=== PATIENT | male | born 1940 | race Caucasian/White ===

== ENCOUNTER 2017-02-27 05:42 | Day surgery (SDC) | payer MEDICARE ==
--- OUTSIDE RECORDS SUMMARY | 2017-02-27 05:46 | XMS REPORT | Continuity of Care Document ---
:1940 Author Organization [facility] ([facility]) Address [address] [place] [address] Phone [phone] Care Team Providers Name Role Phone Unavailable Primary Care Provider Unavailable Source Comments This disclosure is being made pursuant to the Care Everywhere program, applicable federal and state laws, and may not contain all informaitonavailable regarding this patient.[facility] ([facility]) Active Allergies and Adverse Reactions Not on File Current Medications Not on file Active Problems Not on file Social History Tobacco Use Types Packs/Day Years Used Date Never Assessed Plan of Care Health Maintenance Due Date Last Done Comments Hepatitis B Vaccine (1 of 3 - Primary Series) 1940 Tdap Vaccine 1952 Lipid Disorder Screening 1959 Td Vaccine 1959 Colonoscopy 1991 Prostate Cancer Screening 1991 Zoster Vaccine 2001 Pneumococcal Vaccine (1 of 2 - PCV13) 2006 Influenza Vaccine: Seasonal (#1) 07/01/2016 Results from Last 3 Months Not on file
[2017-02-27] MEDS ORDERED: ceFAZolin SODIUM 1 GM in DEXTROSE 5 % IN WATER 100 ML IV PRN ×2 (06:00)
[2017-02-27] MEDS ORDERED: ONDANSETRON HCL/PF 2 MG/ML VIAL IV PRN (06:00)
[2017-02-27] MEDS ORDERED: ACETAMINOPHEN 325 MG TABLET PO PRN (06:00)
[2017-02-27] MEDS ORDERED: RINGERS SOLUTION,LACTATED 1,000 ML IV PRN (06:00)
[2017-02-27] MEDS ORDERED: oxyCODONE HCL/ACETAMINOPHEN 1 TAB TABLET PO PRN ×2 (06:00)
[2017-02-27] MEDS ORDERED: MORPHINE SULFATE 4 MG/ML SYRG IV PRN ×2 (06:00)
[2017-02-27] MEDS ORDERED: OXYMETAZOLINE HCL 150 SPRAY BTL NS PRN (06:00)
[2017-02-27] MEDS ORDERED: MORPHINE SULFATE 10 MG/ML SYRG IV PRN ×2 (06:00)
[2017-02-27] MEDS ORDERED: DEXAMETHASONE SOD PHOSPHATE 10 MG/ML VIAL IV PRN (06:00)
[2017-02-27] MEDS ORDERED: RINGERS SOLUTION,LACTATED 1,000 ML IV ONE (06:55)
[2017-02-27] MEDS ORDERED: OXYMETAZOLINE HCL 150 SPRAY BTL NS ONE (07:15)
[2017-02-27] MEDS ORDERED: MUPIROCIN 22 APPL TUBE TP ONE (07:34)
[2017-02-27] MEDS ORDERED: LIDOCAINE HCL/EPINEPHRINE 30 ML VIAL IJ ONE ×2 (07:34)
[2017-02-27] MEDS ORDERED: COCAINE HCL 4 APPL BTL TP ONE (07:34)
[2017-02-27 09:32] VITALS: BP 171/82
== END 2017-02-27 05:43 | disposition home or self-care (01) ==
LOC: AMB 05:42
PROVIDERS: ATTEND Allergy & Immunology
PROC: 09BL0ZZ Excision of Nasal Turbinate, Open Approach (ICD-10-PCS; 2017-02-27)
PROC: 09SM0ZZ Reposition Nasal Septum, Open Approach (ICD-10-PCS; principal; 2017-02-27 07:00)
DX: J34.2 Deviated nasal septum (principal); J34.3 Hypertrophy of nasal turbinates; E11.9 Type 2 diabetes mellitus without complications; I10 Essential (primary) hypertension; E78.5 Hyperlipidemia, unspecified; I25.10 Atherosclerotic heart disease of native coronary artery without angina pectoris; Z87.891 Personal history of nicotine dependence; Z68.29 Body mass index [BMI] 29.0-29.9, adult

== ENCOUNTER 2017-08-25 03:38 | Emergency (ER) | payer MEDICARE ==
--- NOTE | 2017-08-25 04:01 | ERNOTE ---
Medical Problem HPI - General Chief Complaint: General Assessment Time Seen by Provider: 08/25/17 04:00 Source: patient, police Exam Limitations: dementia - possible - Immun/Allergies/Home Medications Immunizations: IMMUNIZATION HX Immunizations Up to Date Yes History of Influenza Vaccine Yes Hx Pneumococcal Vaccination Yes Allergies/Adverse Reactions: Allergies No Known Allergies Allergy (Verified 08/25/17 04:06) Home Medications: HOME MEDICATIONS Aspirin 325 mg PO DAILY 08/25/17 [Last Taken Unknown] Atorvastatin Calcium 40 mg PO DAILY 08/25/17 [Last Taken Unknown] Insulin Glargine,Hum.rec.anlog [Lantus] 22 units SC HS 08/25/17 [Last Taken Unknown] Lisinopril 20 mg PO DAILY 08/25/17 [Last Taken Unknown] Mometasone Furoate [Nasonex] 2 spray NS DAILY 08/25/17 [Last Taken Unknown] metFORMIN HCL [Glucophage] 1,000 mg PO BIDWM 08/25/17 [Last Taken Unknown] - History of Present History Narrative: Patient is convinced that one of his neighbors is trying to kill him. He has been threatening this neighbor. Now the neighbor wants to press charges against him and called the police. The police felt that the patient didn't understand the problem so brought the patient here to be checked out. Patient is alert and oriented to date, time and place. Timing: intermittent Severity: moderate Modifying Factors - (Improves): Present: other - nothing Modifying Factors - (Worsens): Present: other - nothing Review of Systems - Review of Systems Constitutional: Absent: recent illness, fever, chills, weakness EYE: Absent: eye pain ENT: Absent: ear pain, sore throat Respiratory: Absent: shortness of breath, cough Cardiology: Absent: chest pain Gastrointestinal/Abdominal: Absent: nausea, vomiting, diarrhea, abdominal pain Genitourinary: Absent: frequency, pain, dysuria Musculoskeletal: Absent: back pain, muscle pain, muscle stiffness, neck pain Skin: Present: no symptoms reported Neurological: Absent: anxiety, depressed Endocrine: Present: no symptoms reported Hematologic/Lymphatic: Present: no symptoms reported Psych: Present: no symptoms reported - Patient's Past Medical History Patient History - Medical: Diabetes Type 2 Insulin Dependent, Other Patient History - Cardiac/Respiratory: Hypertension, Hyperlipidemia Patient History - Cancer: No Hx of Cancer Patient History - Surgical Procedures: Hernia Repair, Orthopedic Patient History - Other: None - Family History Mother Family History - Medical: , Diabetes Type 2 Family History - Cardiac/Respiratory: No pertinent hx Family History - Cancer: No pertinent family hx - Social History Living Situations: home Abuse History: No History of abuse Psych History: No pertinent hx Smoking Status: Former smoker Alcohol Use: none Drug Use: none - Immunizations Immunizations Up to Date: Yes Hx Pneumococcal Vaccination: Yes History of Influenza Vaccine: Yes Physical Exam - Physical Exam General Appearance: Present: wd/wn, alert, no apparent distress Head Exam: Present: normal inspection, no evidence of injury Eye Exam: Normal inspection: bilateral, PERRL: bilateral, EOMI: bilateral Ears, Nose, Throat: Present: normal ENT inspection Neck: Present: normal inspection, nontender Respiratory: Present: no respiratory distress, normal breath sounds, no accessory muscle use Cardiovascular/Chest: Present: regular rate, rhythm, no murmur, normal peripheral pulses Gastrointestinal/Abdominal: Present: normal bowel sounds, nontender, nondistended, soft Back Exam: Present: normal inspection, normal range of motion, no CVA tenderness , no vertebral tenderness Extremity Exam: Present: normal inspection, non-tender, normal range of motion, no edema Neurological Exam: Present: alert, oriented, normal mood/affect, no motor/ sensory deficits ED Progress - Results and Orders Patient's Lab Results:: I have reviewed the patient's lab results. Results and Orders: Troponin at 0.027, will need a repeat in 2 hours. 07:00 Repeat Troponin is 0.026, will discharge the patient home. - Vital Signs Patient's Vital Signs:: I have reviewed the patient's vital signs. Vital Signs: Vital Signs 08/25/17 03:43 Temperature 36.5 C Pulse Rate 98 Respiratory 16 Rate Blood Pressure 118/71 O2 Sat by Pulse 97 Oximetry - EKG EKG: NSR, ST depression - V4, V5 depression, approximately the same as last EKG done on 08/18/08 EKG read: Interp. by me - X-Ray X-Ray #1 X-Ray: chest Interpretation: Interp. by me X-ray Comments: No cardiomegaly, no infiltrates noted, mild hyperinflation, no bony abnormalities noted. - Progress/Reassessment Chief Complaint: General Assessment Plan - Plan Plan: Will discharge patient home. He is not under any arrest at this time. He talks a good story, sounds reasonably with it, but cannot remember why he is waiting. Patient states he has an appointment tomorrow with Dr. Sosa. He did mention that he felt that the neighbor was destroying his trailer while he was in here, is pretty adamant about that. Departure Clinical Impression: Agitation, Persecution, delusion - Departure Disposition: Home self-care Condition: Good Instructions: Confusion Referrals: Anshu Sosa MD [Staff Physician] - (2-3 days)
[2017-08-25 04:18] LABS: Hematocrit 40.3 % (42.0-52.0); Hemoglobin 13.8 gm/dL (13.5-18.0); Mean Cell Volume 90.2 fl (78-100); Mean Corpuscular Hemoglobin 30.9 pg (27-31); Mean Corpuscular Hgb Conc 34.2 g/dl (32-36); Mean Platelet Volume 9.8 fl (6.0-9.5); Neutrophil # 5.6 K/mm3 (1.3-6.0); Neutrophil % 69.7 % (42-75.0); Platelet Count 289 K/mm3 (150-450); Red Blood Count 4.47 M/mm3 (4.7-6.0); Red Cell Distribution Width 13.6 % (11.5-14.0)
[2017-08-25 04:36] LABS: Albumin * 4.3 gm/dl (3.4-5.0); Anion Gap 17.1 mmol/L (6.8-13.8); BUN/Creatinine Ratio 12.1 (9.0-21.6); Bilirubin, Total 1.1 mg/dL (0.0-1.1); Ca. Corrected For Albumin 8.9 mg/dL (8.4-10.2); Calcium * 9.5 mg/dL (7.9-10.9); Carbon Dioxide 23.9 mmol/L (24-32.6); Total Protein 7.8 gm/dL (6.2-8.2)
[2017-08-25 04:38] LABS: Urine Bilirubin Negative (NEGATIVE); Urine Blood Negative /ul (NEGATIVE); Urine Ketone 15 mg/dL (NEGATIVE); Urine Nitrite Negative (NEGATIVE); Urine Protein 15 mg/dL (NEGATIVE); Urine Specific Gravity 1.015 SP.GR. (1.005-1.030); Urine Urobilinogen Normal (NORMAL); Urine pH 6.5 pH (5.0-7.0)
[2017-08-25 04:40] LABS: Troponin I 0.027 ng/ml (0.00-0.10)
[2017-08-25 04:46] LABS: Urine Appearance Clear; Urine Bacteria None Seen; Urine Color Yellow; Urine RBC None Seen /hpf (0-5); Urine WBC 0-5 /hpf (0-5)
[2017-08-25 04:51] LABS: Cocaine Ur Negative (NEGATIVE); Urine Barbiturate Negative (NEGATIVE); Urine Benzodiazepines Negative (NEGATIVE); Urine Opiates Negative (NEGATIVE); Urine PCP Negative (NEGATIVE); Urine THC Negative (NEGATIVE)
[2017-08-25 07:10] VITALS: BP 158/70
== END 2017-08-25 07:10 | disposition home or self-care (01) ==
LOC: ER 03:38
DX: R45.1 Restlessness and agitation (principal); F22 Delusional disorders; E11.9 Type 2 diabetes mellitus without complications; Z79.4 Long term (current) use of insulin; I10 Essential (primary) hypertension; E78.5 Hyperlipidemia, unspecified

== ENCOUNTER 2017-08-26 08:14 | Emergency (ER) | payer MEDICARE ==
[2017-08-26 08:59] LABS: Hematocrit 40.4 % (42.0-52.0); Hemoglobin 13.9 gm/dL (13.5-18.0); Mean Cell Volume 89.2 fl (78-100); Mean Corpuscular Hemoglobin 30.7 pg (27-31); Mean Corpuscular Hgb Conc 34.4 g/dl (32-36); Mean Platelet Volume 9.7 fl (6.0-9.5); Neutrophil # 6.7 K/mm3 (1.3-6.0); Neutrophil % 71.7 % (42-75.0); Platelet Count 291 K/mm3 (150-450); Red Blood Count 4.53 M/mm3 (4.7-6.0); Red Cell Distribution Width 13.3 % (11.5-14.0); White Blood Count 9.3 K/mm3 (4.0-10.5)
[2017-08-26 09:12] LABS: ALT 33 U/L (19-67); AST 19 U/L (0-48); Albumin * 4.2 gm/dl (3.4-5.0); Alkaline Phosphatase * 82 U/L (50-170); BUN/Creatinine Ratio 18.9 (9.0-21.6); Blood Urea Nitrogen 18 mg/dL (6-23); Calcium * 9.5 mg/dL (7.9-10.9); Carbon Dioxide 26.2 mmol/L (24-32.6); Chloride 102 mmol/L (97-106); Glucose * 244 mg/dL (70-110); Potassium 4.2 mmol/L (3.4-4.6); Sodium 137 mmol/L (132-142); TSH * 1.284 uIU/mL (0.358-3.74); Total Protein 7.7 gm/dL (6.2-8.2)
[2017-08-26 09:16] LABS: Salicylate Less than 2.8 mg/dL (2.8-20.0)
[2017-08-26 09:30] LABS: Urine Bilirubin Negative (NEGATIVE); Urine Blood Negative /ul (NEGATIVE); Urine Ketone Negative (NEGATIVE); Urine Nitrite Negative (NEGATIVE); Urine Protein Negative (NEGATIVE); Urine Urobilinogen Normal (NORMAL)
[2017-08-26 09:46] LABS: Urine Appearance Clear; Urine Bacteria None Seen; Urine Color Yellow; Urine RBC None Seen /hpf (0-5); Urine WBC None Seen /hpf (0-5)
[2017-08-26 09:48] LABS: Cocaine Ur Negative (NEGATIVE); Urine Barbiturate Negative (NEGATIVE); Urine Benzodiazepines Negative (NEGATIVE); Urine Opiates Negative (NEGATIVE); Urine PCP Negative (NEGATIVE); Urine THC Negative (NEGATIVE)
--- NOTE | 2017-08-26 13:29 | ERNOTE ---
<Cosme Flores - Last Filed: 08/26/17 19:42> Psychological HPI - Date Date of Service: 08/26/17 - General Chief Complaint: Psychiatric Problem Source: Reports: patient Exam Limitations: Reports: no limitations - Immun/Allergies/Home Medications Allergies/Adverse Reactions: Allergies No Known Allergies Allergy (Verified 08/26/17 08:32) Home Medications: HOME MEDICATIONS Aspirin 325 mg PO DAILY 08/25/17 [Last Taken Unknown] Atorvastatin Calcium 40 mg PO DAILY 08/25/17 [Last Taken Unknown] Insulin Glargine,Hum.rec.anlog [Lantus] 22 units SC HS 08/25/17 [Last Taken Unknown] Lisinopril 20 mg PO DAILY 08/25/17 [Last Taken Unknown] Mometasone Furoate [Nasonex] 2 spray NS DAILY 08/25/17 [Last Taken Unknown] metFORMIN HCL [Glucophage] 1,000 mg PO BIDWM 08/25/17 [Last Taken Unknown] Fluticasone Propionate [Flonase] 2 spray NS BID 08/26/17 [Last Taken Unknown] - History of Present Illness Narrative: Patient presents to the ED with police. By report he went to his neighbor's house with a gun last night. The neighbor took his gun and called police this morning. he relates the he has been hearing voices for the last week or so and the voice is telling him that his neighbor is going to kill him. He gets occasional headaches but no other new symptoms. No CP or SOB. No fever. No N/ T/W. Denies SI. Nothing makes this better or worse. Time Seen by Provider: 08/26/17 08:37 Arrived by: Reports: police Onset/duration: Reports: gradual onset Associated Symptoms: Reports: paranoid, hallucinating. Denies: depressed, suicidal thoughts Prior Treament: Denies: recently seen Review of Systems - Review of Systems Constitutional: Absent: fever Respiratory: Absent: shortness of breath Cardiology: Absent: chest pain Gastrointestinal/Abdominal: Absent: abdominal pain Genitourinary: Absent: dysuria Neurological: Absent: weakness All Other Systems: All systems neg except as marked - Patient's Past Medical History Patient History - Medical: Diabetes Type 2 Insulin Dependent, Other Patient History - Cardiac/Respiratory: Hypertension, Hyperlipidemia Patient History - Cancer: No Hx of Cancer Patient History - Surgical Procedures: Hernia Repair, Orthopedic Patient History - Other: None - Family History Mother Family History - Medical: , Diabetes Type 2 Family History - Cardiac/Respiratory: No pertinent hx, Hypertension, Hyperlipidemia Family History - Cancer: No pertinent family hx - Social History Living Situations: home Abuse History: No History of abuse Psych History: No pertinent hx Alcohol Use: none Drug Use: none - Immunizations Immunizations Up to Date: Yes Hx Pneumococcal Vaccination: Yes History of Influenza Vaccine: Yes Psychological Exam - Exam General Appearance: Present: alert, no apparent distress Head Exam: Present: normal inspection, no evidence of injury Neurological: Present: alert, medical coding technician II-XII nml as tested Behavior/Eye Contact/Speech: Present: cooperative Eye Exam: Normal inspection: bilateral, PERRL: bilateral Ears, Nose, Throat: Present: normal ENT inspection Neck: Present: normal inspection Respiratory: Present: no respiratory distress, normal breath sounds, no accessory muscle use, lungs clear Cardiovascular/Chest: Present: regular rate, rhythm Gastrointestinal/Abdominal: Present: normal bowel sounds, nontender, soft Back Exam: Present: normal range of motion Extremity Exam: Present: normal inspection, normal range of motion Skin Exam: Present: normal color, warm/dry ED Progress - Results and Orders Patient's Lab Results:: I have reviewed the patient's lab results. - Vital Signs Patient's Vital Signs:: I have reviewed the patient's vital signs. Vital Signs: Vital Signs 08/26/17 08/26/17 08:27 09:53 Temperature 37.0 C 36.9 C Pulse Rate 90 67 Respiratory 16 12 Rate Blood Pressure 123/57 142/66 O2 Sat by Pulse 96 97 Oximetry - EKG EKG: NSR EKG read: Interp. by me EKG Comments: NSR rate 82. Non-specific changes, no STMEI. Minimal changed from prior - CT/Ultrasound CT/Ultrasound Narrative: I reviewed official CT report CT Head - Progress/Reassessment Chief Complaint: Psychiatric Problem Progress Note-Subjective: 08/26/17 13:34 patient seen in ED by Dr Thibodeaux, he recommends inpatient psych admission. Medically stable at this time. - Transfer of Care Physician Sign Out: Cosme Flores Receiving Physician: Stephen Lobo Expected Disposition: Transfer Departure Clinical Impression: Auditory hallucination, Delusions - Departure Disposition: Other health care facility Condition: Stable Referrals: Anshu Sosa MD [Primary Care Provider] - <JoseGustavo mellon - Last Filed: 08/26/17 21:59> ED Progress - Vital Signs Vital Signs: Vital Signs 08/26/17 08/26/17 20:23 21:08 Temperature 36.9 C Pulse Rate 69 69 Respiratory 12 Rate Blood Pressure 127/64 127/64 O2 Sat by Pulse 97 Oximetry - Progress/Reassessment Progress Note-Subjective: 08/26/17 21:56 Pt has been calm and cooperative. Pt accepted at [facility] by Dr. Hayward. Pt will be transferred via [facility].
--- NOTE | 2017-08-26 14:34 | CONS ---
[facility] - General Date of Service: 08/26/17 Narrative: IDENTIFYING INFORMATION This is a 77 year old , single, retired , male from [place], [place] , who lives alone. He was brought to the ED by policemen because he allegedly threatened a male neighbor, whose name he does not even know, because "the voices told me he was going to kill and , therefore, I should kill him first." BRIEF BACKGROUND HISTORY I reviewed this fellow's entire medical file under Dr. Anshu Sosa , his [employer] [facility] since 2012. 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 This explains why this fellow, who has never had a bit of psychiatric problems all of his 77 years of life has suddenly been complaining of headaches almost daily for the past year in the right frontal region with no radiation. Not aggravated by the Valsalva maneuver, exertion or cognitive activities. No nausea or vomiting nor photosensitivity or sensitivity to noise or dizziness and balance problems. The onset of his hearing these male voices has only been since this past week , There are no discernible ecological triggers. he does not even know this neighbor by name nor has he had previous contact with him. INTERVIEW This is a well-built, athletic-looking , well-groomed man who is quite affable and "with it"..except for the paranoid "idea fixee."Affect, associations, cognitive thinking, speech are all unremarkable. 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 Because he lives alone, I recommend that we have him hospitalized briefly in a psychiatric unit and stabilize him with SGAs (Second Generation Antipsychotics) and either have Home Health Nursing Care or placement in a supervised residential setting . Thank you. - History of Present Illness Allergies/Adverse Reactions: Allergies No Known Allergies Allergy (Verified 08/26/17 08:32) Home Medications: Home Medications Medication Instructions Recorded Last Taken Aspirin 325 mg PO DAILY 08/25/17 Unknown Atorvastatin Calcium 40 mg PO DAILY 08/25/17 Unknown Insulin Glargine,Hum.rec.anlog 22 units SC HS 08/25/17 Unknown [Lantus] Lisinopril 20 mg PO DAILY 08/25/17 Unknown Mometasone Furoate [Nasonex] 2 spray NS DAILY 08/25/17 Unknown metFORMIN HCL [Glucophage] 1,000 mg PO BIDWM 08/25/17 Unknown Fluticasone Propionate [Flonase] 2 spray NS BID 08/26/17 Unknown - Patient's Past Medical History Patient History - Medical: Diabetes Type 2 Insulin Dependent, Other Patient History - Cardiac/Respiratory: Hypertension, Hyperlipidemia Patient History - Cancer: No Hx of Cancer Patient History - Surgical Procedures: Hernia Repair, Orthopedic Patient History - Other: None - Family History Mother Family History - Medical: , Diabetes Type 2 Family History - Cardiac/Respiratory: No pertinent hx, Hypertension, Hyperlipidemia Family History - Cancer: No pertinent family hx - Social History Living Situations: home Abuse History: No History of abuse Psych History: No pertinent hx Alcohol Use: none Drug Use: none - Immunizations Immunizations Up to Date: Yes Hx Pneumococcal Vaccination: Yes History of Influenza Vaccine: Yes Procedures CATARAC PHACOEMULS/ASPIR (10/03/08) CIRCUMCISION (06/10/14) COLONOSCOPY (04/11/14) EXCISION OF NASAL TURBINATE, OPEN APPROACH (02/27/17) INSERT LENS AT CATAR EXT (10/03/08) REPOSITION NASAL SEPTUM, OPEN APPROACH (02/27/17) Physical Examination - Exam Vital Signs: Vital Signs - Last Taken Temp 36.9 C 08/26/17 09:53 Pulse 67 08/26/17 09:53 Resp 12 08/26/17 09:53 BP 142/66 08/26/17 09:53 Pulse Ox 97 08/26/17 09:53 O2 Oxygen Delivery Method Nasal Cannula - Results and Findings: Lab/Microbiology results last 24 hrs: Abnormal/Pending Laboratory Last 24 HRS 08/26/17 08/26/17 08/26/17 08:40 08:40 08:35 RBC 4.53 L Hct 40.4 L MPV 9.7 H Lymphocytes % 16.7 L Eosinophils % 3.8 H Neutrophils # 6.7 H Random Glucose 244 H D Urine Glucose (UA) 100 H Salicylates Less than 2.8 L Acetaminophen Less than 0.2 L
[2017-08-26] MEDS ORDERED: LISINOPRIL 10 MG TABLET ONE (20:30)
[2017-08-26] MEDS ORDERED: ASPIRIN 325 MG TABLET.DR ONE (20:30)
[2017-08-26] MEDS ORDERED: LISINOPRIL 10 MG TABLET PO ONE (20:32)
[2017-08-26] MEDS ORDERED: ASPIRIN 325 MG TABLET.DR PO ONE (20:32)
[2017-08-26] MEDS ORDERED: metFORMIN HCL 500 MG TABLET ONE (20:40)
[2017-08-26] MEDS ORDERED: INSULIN GLARGINE,HUM.REC.ANLOG 100 UNITS/ML VIAL SC ONE ×2 (20:40→20:45)
[2017-08-26] MEDS ORDERED: ATORVASTATIN CALCIUM 40 MG TABLET ONE (20:41)
[2017-08-26] MEDS ORDERED: ATORVASTATIN CALCIUM 40 MG TABLET PO ONE (20:45)
[2017-08-26 22:29] VITALS: BP 158/80
== END 2017-08-26 22:15 | disposition short-term general hospital (02) ==
LOC: ER 08:14
DX: F22 Delusional disorders (principal); R44.0 Auditory hallucinations; E11.9 Type 2 diabetes mellitus without complications; Z79.4 Long term (current) use of insulin; I10 Essential (primary) hypertension; E78.5 Hyperlipidemia, unspecified
CPT/HCPCS: 36415; 70450; 80053; 80307; 81001; 84439; 84443; 85025; 93005; 96372; 99285; G0480; G0481